=== PATIENT | male | born 1950 | race Caucasian/White ===

== ENCOUNTER 2016-09-21 19:49 | Observation (INO) | payer OTHER ==
[~2016-09-21] VITALS: Ht 172.7 cm; Wt 81.0 kg
[~2016-09-21 19:49] MED LIST: BP PILL; PROMETHAZINE HC25 M1 PO; PROTONIX40 MG PO
[2016-09-21 20:28] LABS: HEMATOCRIT 39.5 % (38.0-50.0); MCH 31.2 PG (29.0-34.0); MCHC 34.2 G/DL (30.0-36.0); MCV 91.2 FL (86-99); MEAN PLAT.VOLUME 11.4 uM^3 (9.0-12.4); PLATELET COUNT 157 K/uL (156-360); RBC DIS.WIDTH-CV 12.4 % (11.8-14.6); RBC DIS.WIDTH-SD 41.7 % (39-53); RED BLOOD COUNT 4.33 M/uL (4.00-5.50); WHITE BLOOD COUNT 6.2 K/uL (4.1-10.2)
[2016-09-21 20:54] LABS: CHLORIDE 102 mEq/L (99-109); POTASSIUM 3.9 mEq/L (3.7-5.4); SODIUM 135 mEq/L (136-147)
[2016-09-21 20:56] LABS: GLUCOSE 93 mg/dL (70-99)
[2016-09-21 20:57] LABS: ANION GAP 12 MEQ/L (2-14)
[2016-09-21 20:58] LABS: TOTAL BILIRUBIN 0.4 mg/dL (0.0-1.0)
[2016-09-21 20:59] LABS: ALKALINE PHOSPHATASE 86 IU/L (3-129)
[2016-09-21 21:00] LABS: GFR ESTIMATE (CALCULATED) > 59 mL/min/
[2016-09-21 21:01] LABS: UREA NITROGEN (BUN) 13 mg/dL (9-23)
[2016-09-21 22:02] LABS: TROP-I INTERPRETATION NEGATIVE; TROPONIN-I < 0.01 ng/mL (0.0-0.30)
[2016-09-21] MEDS ORDERED: LO-DOSE ASPIRIN81 M2 PO (22:47)
[2016-09-21] MEDS ORDERED: IBUPROFEN800 MG PO (22:47)
[2016-09-21] MEDS ORDERED: ZESTORETIC 20-1 EAC1 PO (22:47)
[2016-09-22 03:57] VITALS: BP 103/65
[2016-09-22 05:57] LABS: HEMATOCRIT 37.9 % (38.0-50.0); MCH 31.2 PG (29.0-34.0); MCV 91.5 FL (86-99); MEAN PLAT.VOLUME 10.8 uM^3 (9.0-12.4); PLATELET COUNT 139 K/uL (156-360); RBC DIS.WIDTH-CV 12.5 % (11.8-14.6); RED BLOOD COUNT 4.14 M/uL (4.00-5.50); WHITE BLOOD COUNT 5.1 K/uL (4.1-10.2)
[2016-09-22 06:24] LABS: ALKALINE PHOSPHATASE 65 IU/L (3-129); ANION GAP 8 MEQ/L (2-14); CHLORIDE 105 MEQ/L (99-109); GFR ESTIMATE (CALCULATED) > 59 mL/min/; GLUCOSE 92 mg/dL (70-99); SAMPLE HEMOLYSIS CHECK 0; SAMPLE ICTERIC CHECK 0; SAMPLE LIPEMIA CHECK 0; SODIUM 139 MEQ/L (136-147); TOTAL BILIRUBIN 0.5 MG/DL (0.0-1.0); UREA NITROGEN (BUN) 12 mg/dL (9-23)
[2016-09-22 06:40] LABS: TROP-I INTERPRETATION NEGATIVE; TROPONIN-I < 0.01 ng/mL (0.0-0.30)
[2016-09-22 07:20] VITALS: BP 116/63
[2016-09-22 07:22] VITALS: BP 122/80
[2016-09-22 07:27] VITALS: BP 117/75
[2016-09-22 11:53] VITALS: BP 107/68
[2016-09-22 13:30] VITALS: BP 127/73
[2016-09-22 14:53] LABS: TROP-I INTERPRETATION NEGATIVE; TROPONIN-I 0.01 ng/mL (0.0-0.30)
== END 2016-09-22 21:12 | disposition home or self-care (01) ==
LOC: EME 19:49 → EDOF 22:10 → 5WEST 22:10
PROVIDERS: Emergency Medicine; Internal Medicine
DX: R55 Syncope and collapse (principal); I10 Essential (primary) hypertension; E86.0 Dehydration; R07.89 Other chest pain; M19.90 Unspecified osteoarthritis, unspecified site; Z87.11 Personal history of peptic ulcer disease; H53.8 Other visual disturbances; R11.2 Nausea with vomiting, unspecified; Z73.3 Stress, not elsewhere classified; Z96.611 Presence of right artificial shoulder joint; Z82.49 Family history of ischemic heart disease and other diseases of the circulatory system
CPT/HCPCS: 70140; 70549; 71010; 80053; 84484; 85027; 93005; 93306; 93880; 99281; 99283; G0378

== ENCOUNTER 2016-12-01 16:23 | Emergency (ER) | payer OTHER ==
[~2016-12-01] VITALS: Ht 172.7 cm; Wt 81.6 kg
[~2016-12-01 16:23] MED LIST changes: +IBUPROFEN800 MG PO; +LO-DOSE ASPIRIN81 M2 PO; +ZESTORETIC 20-1 EAC1 PO
[2016-12-01] MEDS ORDERED: PRILOSEC10 MG PO (18:22)
[2016-12-01] MEDS ORDERED: COL-RITE100 M1 PO (18:22)
[2016-12-01 19:04] LABS: HEMATOCRIT 38.3 % (38.0-50.0); MCH 31.5 PG (29.0-34.0); MCHC 34.5 G/DL (30.0-36.0); MCV 91.4 FL (86-99); MEAN PLAT.VOLUME 11.1 uM^3 (9.0-12.4); PLATELET COUNT 141 K/uL (156-360); RBC DIS.WIDTH-CV 12.7 % (11.8-14.6); RBC DIS.WIDTH-SD 42.2 % (39-53); RED BLOOD COUNT 4.19 M/uL (4.00-5.50); WHITE BLOOD COUNT 7.3 K/uL (4.1-10.2)
[2016-12-01 19:13] LABS: CHLORIDE 107 mEq/L (99-109); POTASSIUM 3.7 mEq/L (3.7-5.4); SODIUM 139 mEq/L (136-147)
[2016-12-01 19:14] LABS: GLUCOSE 87 mg/dL (70-99)
[2016-12-01 19:16] LABS: ANION GAP 10 MEQ/L (2-14)
[2016-12-01 19:18] LABS: GFR ESTIMATE (CALCULATED) > 59 mL/min/
[2016-12-01 19:19] LABS: UREA NITROGEN (BUN) 12 mg/dL (9-23)
[2016-12-01 19:38] LABS: ERTH.SED.RATE 8 MM/HR (0-20)
[2016-12-01 19:40] LABS: C-REACTIVE PROTEIN 7.9 MG/L (0-10)
[2016-12-01] MEDS ORDERED: KEFLEX500 MG PO (21:58)
[2016-12-01 22:41] VITALS: BP 133/63
== END 2016-12-01 22:42 | disposition home or self-care (01) ==
LOC: EME 16:23
PROVIDERS: Physician Assistant Medical
PROC: 0S9D3ZZ Drainage of Left Knee Joint, Percutaneous Approach (ICD-10-PCS; principal; 2016-12-01)
DX: M70.52 Other bursitis of knee, left knee (principal); I10 Essential (primary) hypertension; K21.9 Gastro-esophageal reflux disease without esophagitis; Z96.611 Presence of right artificial shoulder joint; Z87.891 Personal history of nicotine dependence
CPT/HCPCS: 73564; 73590; 80048; 85027; 85651; 86140; 93971; 99281; 99285; J1885

== ENCOUNTER → 2017-07-25 | Outpatient (CLI) | payer MEDICARE ==
[~2017-07-25] MED LIST changes: +COL-RITE100 M1 PO; +KEFLEX500 MG PO; +PRILOSEC10 MG PO
== END | disposition home or self-care (01) ==
LOC: CDC 09:30
DX: Z01.810 Encounter for preprocedural cardiovascular examination (principal); M48.062 Spinal stenosis, lumbar region with neurogenic claudication; I45.10 Unspecified right bundle-branch block; R94.31 Abnormal electrocardiogram [ECG] [EKG]
CPT/HCPCS: 93000